=== PATIENT | male | born 1960 | race African-American/Black ===

== ENCOUNTER 2019-03-22 19:36 | Emergency (ER) | payer OTHER ==
--- NOTE | 2019-03-22 22:34 | ED Physician Documentation ---
History of Present Illness - Stated complaint Stated Complaint: NOSEBLEED - Chief complaint Chief Complaint: Heent - History obtained from History obtained from: Patient - History of Present Illness Timing: How many days ago (2) Pain level max: 0 Pain level now: 0 - Additonal information Additional information: 58-year-old male with 2 nosebleeds over the past 4 days. But stopped in less than 5 minutes. He is concerned because his blood pressure has been high. Better with pressure, nothing makes it worse. 1 of the episodes was after blowing his nose. No easy bruising or bleeding. not on anticoagulants. no active bleeding Review of Systems Constitutional: denies: Fever, Chills Nose: denies: Sinus pressure / pain Throat: denies: Sore throat Respiratory: denies: Cough GI: denies: Vomiting Skin: denies: Rash PD PAST MEDICAL HISTORY - Past Medical History Past Medical History: Yes Cardiovascular: Hypertension Respiratory: None Neuro: None Endocrine/Autoimmune: None GI: None : None HEENT: None Psych: None Musculoskeletal: None Derm: None - Past Surgical History Past Surgical History: Yes General: Other - Allergies Allergies/Adverse Reactions: Allergies Allergy/AdvReac Type Severity Reaction Status Date / Time No Known Drug Allergies Allergy Verified 03/22/19 19:50 - Social History Does the pt smoke?: Yes Smoking Status: Current every day smoker Does the pt drink ETOH?: Yes Does the pt have substance abuse?: No - Immunizations Immunizations are current?: Yes - POLST Patient has POLST: No PD ED PE NORMAL - Vitals Vital signs reviewed: Yes - General General: Alert and oriented X 3, No acute distress, Well developed/nourished - HEENT HEENT: PERRL, Moist mucous membranes, Other (Small amount of dried blood in the anterior aspect of the left nare. No active bleeding.) - Neck Neck: Supple, no meningeal sign - Cardiac Cardiac: RRR - Respiratory Respiratory: No respiratory distress, Clear bilaterally - Derm Derm: Warm and dry, No rash - Extremities Extremities: No edema - Neuro Neuro: Alert and oriented X 3 - Psych Psych: Normal mood, Normal affect Results - Vitals Vitals: Oxygen O2 Source Room air PD MEDICAL DECISION MAKING - ED course Complexity details: considered differential, d/w patient ED course: 58-year-old male with epistaxis earlier. No bleeding currently. No prolonged epistaxis. No evidence of bleeding or clotting disorder. No evidence of significant anemia. We will follow-up with PCP for further evaluation of his high blood pressure. No chest pain. No difficulty breathing. Patient counseled regarding signs and symptoms for which I believe and urgent re- evaluation would be necessary. Patient with good understanding of and agreement to plan and is comfortable going home at this time This document was made in part using voice recognition software. While efforts are made to proofread this document, sound alike and grammatical errors may occur. Departure - Departure Disposition: 01 Home, Self Care Clinical Impression: Epistaxis Hypertension Qualifiers: Hypertension type: unspecified Qualified Code(s): I10 - Essential (primary) hypertension Condition: Good Instructions: ED Nosebleed, ED HTN Established Follow-Up: Louis Molina MD [Primary Care Provider] - Within 1 week Comments: You can use saline nasal rinses and Afrin for home. Do not use the Afrin more than 2 to 3 days. Do not blow your nose or pick your nose. Discharge Date/Time: 03/22/19 22:56
[2019-03-22 22:41] VITALS: BP 163/107
== END 2019-03-22 22:56 | disposition home or self-care (01) ==
LOC: ED 19:36
DX: R04.0 Epistaxis (principal); I10 Essential (primary) hypertension; F17.200 Nicotine dependence, unspecified, uncomplicated
CPT/HCPCS: 99282